=== PATIENT | female | born 1965 | race Caucasian/White ===

== ENCOUNTER → 2024-11-05 16:18 | Outpatient (REF) | payer OTHER, SELFPAY | LOC: WDC 16:18 | PROVIDERS: ATTENDING PHYSICIAN Obstetrics & Gynecology; FAMILY PHYSICIAN Internal Medicine | DX: Z12.31 Encounter for screening mammogram for malignant neoplasm of breast (principal) | CPT/HCPCS: 77063; 77067 ==

== ENCOUNTER → 2025-03-19 13:02 | Outpatient (REF) | payer OTHER, SELFPAY | LOC: PAVMRI 13:02 | PROVIDERS: ATTENDING PHYSICIAN Orthopaedic Surgery; FAMILY PHYSICIAN Internal Medicine | DX: M25.562 Pain in left knee (principal) | CPT/HCPCS: 73721 ==